=== PATIENT | male | born 1990 | race African-American/Black ===

== ENCOUNTER 2017-03-11 16:18 | Emergency (ER) | payer OTHER ==
[~2017-03-11] VITALS: Ht 185.4 cm; Wt 79.2 kg
[~2017-03-11 16:18] MED LIST: AMOXICILLIN875 MG PO; DONNATAL1 TABLET PO; IBUPROFEN800 MG PO; KEFLEX500 MG PO; MOTRIN600 MG PO; NOHOMEMEDS; PREDNISONE10 M1 PO; TRAMADOL HCL50 MG PO; ULTRAM50 MG PO; VICODIN 5-3001 EACH PO
[2017-03-11 16:27] VITALS: BP 114/60
[2017-03-11] MEDS ORDERED: NAPROXEN500 MG PO (18:04)
== END 2017-03-11 18:38 | disposition home or self-care (01) ==
LOC: EME 16:18
PROC: 2W3DX1Z Immobilization of Left Lower Arm using Splint (ICD-10-PCS; principal; 2017-03-11)
DX: S63.502A Unspecified sprain of left wrist, initial encounter (principal); W19.XXXA Unspecified fall, initial encounter; Y93.67 Activity, basketball; F17.200 Nicotine dependence, unspecified, uncomplicated
CPT/HCPCS: 73110; 99281; 99283; J1885